=== PATIENT | male | born 1980 | race Caucasian/White ===

== ENCOUNTER 2023-01-14 04:04 | Day surgery (SDC) | payer OTHER ==
[2023-01-14] VITALS (218 sets, daily range): BP systolic 69–157; BP diastolic 45–112
[~2023-01-14] VITALS: Ht 188 cm; Wt 90.7 kg
--- NOTE | 2023-01-14 07:40 | NUR ---
PT ARRIVED TO [facility] SUITES WITH FRIEND, BOTH HAVE BEEN ESCORTED TO ROOM, EXPLAINED OF POC, ALL QUESTIONS HAVE BEEN ADDRESSED. PT HAS BEEN ORIENTED TO ROOM, CALL IGHT AND FALL RISK PRECAUTIONS. PT IS A&OX3, FOLLOWS COMMANDS AND IS ABLE TO MAKE HIS NEED KNOWN. PT HAVING WITHDRAW SX, WILL MAKE CALL TO PHYS. PT HAS BEEN ATTATCHED TO MONITORS, WILL CONTINUE TO MONITOR.
[2023-01-14 08:57] LABS: BASO% 0.3 % (0-3); EOS% 2.3 % (0-8); HEMATOCRIT 42.6 % (39.0-50.0); HEMOGLOBIN 13.9 g/dl (14.0-18.0); LYMPH% 41.3 % (15-41); MEAN CELL VOLUME 87.7 fL CALC (80.0-100.0); MEAN CORPUSCULAR HGB 28.6 pG CALC (26.0-32.0); MEAN CORPUSCULAR HGB CONC 32.6 g/dL CAL (32.0-36.0); MONO% 7.2 % (2-13); NEUT# 2.98 thou/uL (1.82-7.42); NEUT% 48.9 % (42-76); RED BLOOD COUNT 4.86 mill/uL (4.70-6.10); RED CELL DISTRI WIDTH 12.7 % (11.5-15.5)
--- NOTE | 2023-01-14 09:15 | NUR ---
PT REASSESSED AND RESTING WELL, PT HAS NO C/O AT THIS TIME.
[2023-01-14 10:01] LABS: ALBUMIN 3.5 g/dL (3.2-5.0); ALKALINE PHOSPHATASE 40 u/l (38-126); ANION GAP 6 (6-22 (CALC)); BILIRUBIN, TOTAL 0.2 mg/dL (0.2-1.3); BUN 16 mg/dL (9-20); BUN/CREATININE RATIO 21 (12-20 (CALC)); CARBON DIOXIDE 30 mmol/l (22-30); CHLORIDE 104 mmol/l (95-108); CREATININE 0.7 mg/dL (0.7-1.3); GFR FOR AFR.AMER. > 60 ML/MIN (>=60 (CALC)); GFR OTHER RACES > 60 ML/MIN (>=60 (CALC)); POTASSIUM 3.7 mmol/l (3.5-5.1); SGOT/AST 39 u/l (17-59); SODIUM 136 mmol/l (137-146); TOTAL PROTEIN 6.1 g/dL (6.3-8.2)
--- NOTE | 2023-01-14 11:40 | NUR ---
Induction Note Patient to [facility] procedure room. Time out performed at 1140. Patient placed on monitors, Melvin hugger, bilateral wrist restraints applied for ET tube protection. Versed 5mg given IV push at 1141 Tourniquet applied to RIGHT arm Lidocaine 100mg given at 1142 IV push followed by Rocoronium 10mg at 1143 IV push and held for 90 seconds. Propofol bolus of 200mg given at 1145 IV push. Succinylcholine 100mg given IV push at 1146. Smooth intubation with 7.5 ETT. Positive CO2. Positive Auscultation for air exchange. Patient placed on ventilator for spontaneous ventilation. Placed on Propofol IV drip at 1147. OG inserted. Positive air on auscultation. Positive gastric content. Stomach washed at this time.
--- NOTE | 2023-01-14 12:00 | NUR ---
OG close note Stomach washed at this time. Naltrexone 50 mg with Clonidine 0.2 mg via OG tube. OG will be clamped for 45 minutes.
--- NOTE | 2023-01-14 12:45 | NUR ---
PICC site itself clean and dry. PICC dressing changed with clear occlusive dressing applied. PICC dressing clean, dry and intact. No edema, no redness. Flushes easily. Good blood return.
--- NOTE | 2023-01-14 12:45 | NUR ---
OG open note OG open at this time. Gastric content draining into drainage bag. OG to drain for 45 minutes. Propofol will be titrated down based on patient.
--- NOTE | 2023-01-14 13:35 | NUR ---
OG close note Stomach washed at this time. Naltrexone 50 mg with Clonidine 0.3 mg via OG tube. OG will be clamped for 45 minutes.
--- NOTE | 2023-01-14 15:20 | NUR ---
OG close note Stomach washed at this time. Naltrexone 50 mg with Clonidine 0.3 mg via OG tube. OG will be clamped for 45 minutes.
[2023-01-14] MEDS ORDERED: CLONIDINE0.1 MG PO (16:14)
[2023-01-14] MEDS ORDERED: NALTREXONE50 MG PO (16:14)
[2023-01-14] MEDS ORDERED: KLONOPIN2 MG PO (16:15)
--- NOTE | 2023-01-14 17:00 | NUR ---
OG close note Stomach washed at this time. Naltrexone 25 mg with Clonidine 0.2 mg via OG tube. OG will be clamped for 45 minutes.
--- NOTE | 2023-01-14 18:20 | NUR ---
Extubation note Closing medications given Benadryl 50mg IV push, Decadron 10mg IV push,Magnesium 4 grams IV, Zofran 8mg IV push, Octreotide 100mcg SC. Stomach washed out prior to extubation. Suctioned gastric content. OG removed. Patient extubated. Propofol Discontinued. Wrist restraints removed. Melvin hugger Removed. See [facility] Moderate sedate recovery record for further notes and assessment.
--- NOTE | 2023-01-14 19:07 | NUR ---
RECEIVED PATIENT TO ROOM 289. SBAR RECEIVED FROM COREY ECHOLS. PATIENT RESTING, VSS. NO DISTRESS NOTED. BED IN LOW POSITION, ALARM ACTIVATED.
--- NOTE | 2023-01-14 19:17 | NUR ---
PT TRANSFERRED TO [facility] REPORT GIVEN TO COREY ROMERO. PT IS AROUSABLE TO TACTILE STIMULI, PT HAS 2LNC, AND LR @ 100ML/HR. BED ALARM IS ACTIVE.
--- NOTE | 2023-01-15 00:15 | NUR ---
PATIENT WITH MODERATE EMESIS, MUSTARD COLOR. ZOFRAN GIVEN AT THIS TIME.
[2023-01-15 04:00] VITALS: BP 106/62
[2023-01-15 05:46] LABS: BASO% 0.1 % (0-3); HEMATOCRIT 40.3 % (39.0-50.0); HEMOGLOBIN 13.5 g/dl (14.0-18.0); IMMATURE GRANULOCYTES 0.1 % (0.0-5.0); LYMPH% 11.1 % (15-41); MEAN CELL VOLUME 85.9 fL CALC (80.0-100.0); MEAN CORPUSCULAR HGB 28.8 pG CALC (26.0-32.0); MEAN CORPUSCULAR HGB CONC 33.5 g/dL CAL (32.0-36.0); MONO% 3.4 % (2-13); NEUT# 8.66 thou/uL (1.82-7.42); NEUT% 85.3 % (42-76); RED BLOOD COUNT 4.69 mill/uL (4.70-6.10); RED CELL DISTRI WIDTH 12.4 % (11.5-15.5)
[2023-01-15 05:57] LABS: ALKALINE PHOSPHATASE 55 u/l (38-126); ANION GAP 12 (6-22 (CALC)); BUN 13 mg/dL (9-20); BUN/CREATININE RATIO 18 (12-20 (CALC)); CARBON DIOXIDE 25 mmol/l (22-30); CHLORIDE 105 mmol/l (95-108); CREATININE 0.7 mg/dL (0.7-1.3); GFR FOR AFR.AMER. > 60 ML/MIN (>=60 (CALC)); GFR OTHER RACES > 60 ML/MIN (>=60 (CALC)); MAGNESIUM 2.6 mg/dL (1.6-2.3); POTASSIUM 4.1 mmol/l (3.5-5.1); SGOT/AST 48 u/l (17-59); SODIUM 138 mmol/l (137-146); TOTAL PROTEIN 7.1 g/dL (6.3-8.2)
[2023-01-15 06:00] LABS: ALBUMIN 4.3 g/dL (3.2-5.0); BILIRUBIN, TOTAL 0.7 mg/dL (0.2-1.3)
--- NOTE | 2023-01-15 06:00 | NUR ---
PT IN BED AWAKE WITH GARBELED SPEECH, REORIENTED PT TO PLACE AND TIME. PT HAS IV TO THE RAC AND R FEMORAL TL, INTACT AND CLEAN. PT IS RESTLESS AT THIS TIME, REPOSITIONED IN BED TO NAKE COMFORTABLE. PT HAS URINAL AT BEDSIDE BUT PREFERS TO USE THE BATHROOM. PT INSTRUCTED TOUSE CALL LIGHT AND WAIT FOR NURSE PRIOR TO GETTING OUT OF BED. CALL LIGHT WITHIN REACH, BED ALARM ON AND ALL SAFETY MEASURES IN PLACE.
[2023-01-15 06:59] VITALS: BP 131/76
[2023-01-15 07:09] VITALS: BP 131/76
[2023-01-15 08:01] VITALS: BP 131/76
--- NOTE | 2023-01-15 10:00 | NUR ---
PT HAD EMESIS X 1 IN GARBAGE CAN. NOTED TO BE DARK BROWN IN COLOR WITH A SLIGHT PINK TINGE NOTED. NOTIFIED AND VERBAL ORDERS GIVEN. ORDERS ENTERED FAXED TO PHARM AND GIVEN.
--- NOTE | 2023-01-15 12:00 | NUR ---
PT RESTING IN BED REQUESTING TO TAKE ANOTHER SHOWER, ASSISTED TO SHOWER. PT IS ALERT WITH GARBELED SPEECH, CLEAR AT TIMES. PT ASSISTED BACK TO BED CALL LIGHT WITHIN REACH, BED ALARM ON AND ALL SAFETY MEASURES IN PLACE.
--- NOTE | 2023-01-15 14:16 | NUR ---
PT LAYING IN BED MOVING AROUND, IV OUT OF RAC ON BED WITH CATHETER INTACT. PT RAC IS CLEAN WITH NO BLEEDING OR BRUISING NOTED.
--- NOTE | 2023-01-15 16:32 | NUR ---
PT IN BED RESTING, AWAKENED TO VERBAL STIMULATION AND IS TALKATIVE. CONTINES TO HAVE GARBELED SPEECH, CLEAR AT TIMES. CALL LIGHT WITHIN REACH AND ALL SAFETY PRECAUTIONS IN PLACE.
--- NOTE | 2023-01-15 17:05 | NUR ---
Discharge instructions given. Patient verbalizes understanding of same. Discharged in stable condition via Wheelchair to Home with staff. All belongings sent with pt.
== END 2023-01-15 17:10 | disposition home or self-care (01) | DRG 897 ==
LOC: MS2 04:04 → ANR 04:04 → MS2 18:06 → ANR 01-15 17:10
PROVIDERS: ATTEND Anesthesiology Critical Care Medicine
DX: F11.20 Opioid dependence, uncomplicated (principal)
CPT/HCPCS: J0131; J2060; J2354; J3475; S0164